=== PATIENT | female | born 1980 ===

== ENCOUNTER 2017-07-23 08:01 | Outpatient (CLI) | payer OTHER ==
--- NOTE | 2017-07-29 11:50 | MMO ---
BILATERAL DIGITAL SCREENING MAMMOGRAMS: Date: 07/23/17 HISTORY: 36-year-old female presents for digital screening mammogram. COMPARISON: 05/27/13. FINDINGS: This patient's mammogram was interpreted with the assistance of computer-aided detection. Markedly dense changes are noted throughout both breasts, which can lower the sensitivity of mammogra phy and obscure underlying malignancy. There are smooth, circumscribed areas of nodular parenchymal density asymmetry, probably representing multiple bilateral breast cysts in both breasts, which are stable. No direct or indirect evidence of malignancy. IMPRESSION: BIRADS 2: Benign Finding(s) Continue routine screening. POS: [facility]
== END 2017-07-23 08:02 | disposition home or self-care (01) ==
LOC: SCSMAMMO 08:01
PROVIDERS: ATTEND Family Medicine
DX: Z12.31 Encounter for screening mammogram for malignant neoplasm of breast (principal)
CPT/HCPCS: 77067

== ENCOUNTER 2018-03-05 13:09 | Outpatient (CLI) | payer OTHER ==
--- NOTE | 2018-03-05 16:11 | ULT ---
RIGHT BREAST ULTRASOUND: 03/05/18 HISTORY: Right breast mass. COMPARISON: None. TECHNIQUE: Targeted sonographic images of the right breast performed. Static images are reviewed. FINDINGS: There are multiple anechoic foci with stent in perceptible krishnamurthy and posterior acoustic enhancement. The lesions are compatible with multiple right breast cyst. Largest cyst measures 2.6 x 2.5 x 2.0 cm and is retroareolar in location. IMPRESSION: Multiple right breast cysts. BIRADS 2: Benign Finding(s) Routine annual screening mammography (for women over age 40). RECOMMENDATION: Patient should return in June of 2018 for routine screening mammography. POS: [facility]
== END 2018-03-05 13:10 | disposition home or self-care (01) ==
LOC: BICMAMMO 13:09
PROVIDERS: ATTEND Family Medicine
DX: N63.10 Unspecified lump in the right breast, unspecified quadrant (principal); N60.01 Solitary cyst of right breast; Z80.3 Family history of malignant neoplasm of breast
CPT/HCPCS: G0279